=== PATIENT | female | born 1930 | race Caucasian/White ===

== ENCOUNTER 2018-01-17 09:01 | Observation (INO) | payer OTHER, BC ==
[~2018-01-17] VITALS: Ht 162.6 cm; Wt 61.7 kg
[~2018-01-17 09:01] MED LIST: AMLODIPINE BESYL5 MG PO; CIPRO500 MG PO; FIORICET WI1 CAPSULE PO; KLOR-CON M2020 MEQ PO; MECLIZINE HCL25 MG PO; SYNTHROID50 MCG PO; TORSEMIDE20 MG PO; VALIUM5 MG PO; ZITHROMAX Z-PA250 MG PO
[2018-01-17 10:21] LABS: PTT 23.4 SEC (25-37)
[2018-01-17 10:21] LABS: CHLORIDE 107 mEq/L (99-109); POTASSIUM 3.5 mEq/L (3.7-5.4); SODIUM 146 mEq/L (136-147)
[2018-01-17 10:23] LABS: GLUCOSE 104 mg/dL (70-99)
[2018-01-17 10:23] LABS: HEMATOCRIT 40.5 % (36.0-46.0); HEMOGLOBIN 13.8 G/DL (11.9-15.5); MCH 29.1 PG (29.0-34.0); MCHC 34.1 G/DL (30.0-36.0); MCV 85.3 FL (83-99); PLATELET COUNT 240 K/uL (156-360); RBC DIS.WIDTH-CV 15.2 % (11.8-14.6); RBC DIS.WIDTH-SD 47.5 % (39-53); RED BLOOD COUNT 4.75 M/uL (3.80-5.20); WHITE BLOOD COUNT 7.9 K/uL (4.1-10.2)
[2018-01-17 10:27] LABS: CREATININE 0.9 mg/dL (0.6-1.3); GFR ESTIMATE (CALCULATED) > 59 mL/min/
[2018-01-17 10:28] LABS: UREA NITROGEN (BUN) 22 mg/dL (9-23)
[2018-01-17 10:30] LABS: TROP-I INTERPRETATION NEGATIVE; TROPONIN-I < 0.01 ng/mL (0.0-0.30)
[2018-01-17 11:37] LABS: BILIRUBIN NEGATIVE; BLOOD NEGATIVE; COLOR YELLOW ((YELLOW)); GLUCOSE (STRIP) NEGATIVE; KETONES NEGATIVE; LEUKOCYTES NEGATIVE; NITRITE NEGATIVE; PROTEIN (STRIP) NEGATIVE; SPECIFIC GRAVITY 1.011 (1.000-1.030); UROBILINOGEN 0.2 MG/DL (0.2-1.0)
[2018-01-17 11:39] LABS: APPEARANCE CLEAR ((CLEAR)); UCUL ADDED? NO
[2018-01-17 15:03] VITALS: BP 146/76
[2018-01-17 15:19] LABS: THYROTROPIN (TSH) 1.9 MIU/L (0.4-5.5)
[2018-01-17 16:35] VITALS: BP 135/68
[2018-01-17] MEDS ORDERED: DIAZEPAM5 MG PO (17:01)
[2018-01-17 20:13] VITALS: BP 134/65
[2018-01-18] VITALS (7 sets, daily range): BP systolic 109–153; BP diastolic 56–69
[2018-01-18 05:44] LABS: HEMATOCRIT 36.5 % (36.0-46.0); MCH 28.6 PG (29.0-34.0); MCHC 32.3 G/DL (30.0-36.0); MCV 88.6 FL (83-99); PLATELET COUNT 216 K/uL (156-360); RBC DIS.WIDTH-CV 15.7 % (11.8-14.6); RBC DIS.WIDTH-SD 51.2 % (39-53); RED BLOOD COUNT 4.12 M/uL (3.80-5.20); WHITE BLOOD COUNT 6.9 K/uL (4.1-10.2)
[2018-01-18 05:47] LABS: HEMOGLOBIN 11.8 G/DL (11.9-15.5)
[2018-01-18 06:06] LABS: CHLORIDE 108 MEQ/L (99-109); CREATININE 0.7 MG/DL (0.6-1.3); GFR ESTIMATE (CALCULATED) > 59 mL/min/; GLUCOSE 76 mg/dL (70-99); SODIUM 142 MEQ/L (136-147); UREA NITROGEN (BUN) 12 mg/dL (9-23)
[2018-01-18 06:38] LABS: POTASSIUM 4.3 MEQ/L (3.7-5.4)
[2018-01-18] MEDS ORDERED: ANTIVERT25 MG PO (14:24)
== END 2018-01-18 15:49 | disposition home or self-care (01) ==
LOC: EME 09:01 → EDOF 12:17 → 4SOUTH 12:17 → ENRESERV 12:19 → 4SOUTH 13:25
PROVIDERS: Internal Medicine; Nurse Practitioner Family
DX: R42 Dizziness and giddiness (principal); I10 Essential (primary) hypertension; E05.90 Thyrotoxicosis, unspecified without thyrotoxic crisis or storm; Z85.038 Personal history of other malignant neoplasm of large intestine; Z90.49 Acquired absence of other specified parts of digestive tract; Z87.19 Personal history of other diseases of the digestive system; R41.0 Disorientation, unspecified; R11.0 Nausea; Z87.440 Personal history of urinary (tract) infections; E03.9 Hypothyroidism, unspecified; Z88.5 Allergy status to narcotic agent
CPT/HCPCS: 70450; 70551; 71045; 80048; 81003; 84443; 84484; 85027; 85610; 85730; 87086; 93005; 99281; 99285; G0378; G8978 GP CJ; G8979 GP CH; G8980 CJ; G8987 GO CJ; G8988 CI; G8989 CJ; J1650; J2060; J2405; J7030